=== PATIENT | female | born 1980 | race Caucasian/White ===

== ENCOUNTER → 2016-10-24 | Outpatient (CLI) | payer OTHER ==
--- NOTE | 2016-10-24 11:18 | REP ---
DIGITAL DIAGNOSTIC BILATERAL MAMMOGRAPHY WITH CAD AND FOCUSED LEFT BREAST SONOGRAPHY: HISTORY: Painful lump left breast for the last month. Upper outer quadrant. No comparison imaging. MAMMOGRAPHIC FINDINGS: A skin marker is affixed to the skin at the site of the palpable lump. Routine views of the right breast were obtained. Routine left breast views are augmented by magnified focal spot compression CC, MLO and true MLO views. Underlying the skin marker in the upper outer quadrant left breast is a somewhat ill-defined 1.6 cm mass. No definite spiculation is seen. No microcalcifications are observed. Scattered fibroglandular elements are noted elsewhere in the left breast and symmetrically on the right. No right-sided mass is seen. No suspicious calcifications are observed. The mammogram is otherwise unremarkable. SONOGRAPHIC FINDINGS: The left breast is scanned through the area of palpable lump at approximate 2-o'clock position. A macrolobulated hypoechoic solid mass lesion is seen with some enhanced through transmission. This measures 18 x 13 x 14 mm. It is compatible with a fibroadenoma but not diagnostic of this lesion. BIRADS category is felt to be best assigned as category 4. IMPRESSION: BIRADS category 4 suspicious breast imaging. Solid macrolobulated 18 mm mass in the upper outer quadrant at the site of the palpable lump. Histologic sampling is recommended. Ultrasound guided needle biopsy can be performed if desired. BIRADS/ACR category 4 mammogram. Suspicious abnormality - biopsy should be considered. Usually requires biopsy. This mammogram was interpreted with the aid of an FDA-approved computer-aided detection system. The patient states she/he had a clinical breast exam in October, The patient letter being requested is M4. Signed by Pieter Elizabeth MD 10/24/2016 02:01 P
== END ==
LOC: M RAD 09:41
PROVIDERS: ATTEND Family Medicine
DX: N63 Unspecified lump in breast (principal); D48.62 Neoplasm of uncertain behavior of left breast
CPT/HCPCS: 76642; G0204

== ENCOUNTER → 2016-11-21 | Outpatient (CLI) | payer OTHER ==
[~2016-11-21] MED LIST: LIDOCAINE 1% MDV 20ML VIAL As Ordered ONE
--- NOTE | 2016-11-21 15:20 | REP ---
POSTBIOPSY MAMMOGRAM LEFT BREAST: Postbiopsy mammogram left breast performed in the MLO and CC projections. Metallic clip is seen just posterior to the suspicious nodule seen on the mammogram of 10/24/2016. Signed by Nikko Rojas MD 11/21/2016 03:30 P
--- NOTE | 2016-11-21 16:47 | REP ---
ULTRASOUND GUIDED LEFT BREAST BIOPSY: The procedure was performed under the direct supervision of Dr. Rojas. The patient has a history of an 18 x 13 x 14 mm macro-lobulated hypoechoic solid mass seen in the 2 o'clock position of the left breast on a previous ultrasound dated 10/24/2016. The risks and benefits of the procedure were explained to the patient and informed consent was obtained. The left breast mass was localized using ultrasound guidance. The skin was prepped and draped in a sterile fashion. 1% Xylocaine was used as a local anesthetic. Using ultrasound guidance a 13-gauge suction assisted mammotome needle was inserted and 5 core biopsy samples were obtained. A marker clip was placed at the biopsy site. The patient tolerated the procedure well and there were no immediate complications. After the appropriate amount of monitored convalescence the patient was discharged from the department. Reviewed by ANALISA Gonzalez 11/21/2016 04:52 PEdited and Signed by Nikko Rojas MD 11/21/2016 04:57 P
== END ==
LOC: M RADPRO 12:29
PROVIDERS: ATTEND Surgery
DX: C50.919 Malignant neoplasm of unspecified site of unspecified female breast (principal); F32.9 Major depressive disorder, single episode, unspecified; F41.9 Anxiety disorder, unspecified; Z79.899 Other long term (current) drug therapy
CPT/HCPCS: 19083; 88305; G0206

== ENCOUNTER 2016-12-03 10:02 | Inpatient (IN) | payer OTHER ==
[~2016-12-03] VITALS: Ht 154.9 cm; Wt 57.0 kg
[~2016-12-03 10:02] MED LIST changes: +BUPIVACAINE HCL 0.25% 30 ML VIAL As Ordered ONE; +LEXA1TAB2 PO; -LIDOCAINE 1% MDV 20ML VIAL As Ordered ONE; +LIDOCAINE 1% SDV INJ 30 ML VIAL As Ordered ONE; +METHYLENE BLUE 0.5% (5MG/ML) 10 ML AMP (PROVAYBLUE)(Q9968 PER 1MG) As Ordered ONE
[2016-12-03] MEDS ORDERED: LR 1,000 ML IV SCH ×2 (10:30→18:45)
[2016-12-03 10:51] LABS: CONTROL LINE UCG INT CTR LINE PRESENT
[2016-12-03] MEDS ORDERED: LIDOCAINE 5% (LIDODERM) PATCH As Ordered ONE (11:22)
[2016-12-03] MEDS ORDERED: LIDOCAINE 5% (LIDODERM) PATCH TD ONE (11:30)
[2016-12-03] MEDS ORDERED: ROCURONIUM BROMIDE 50 MG/5 ML VIAL As Ordered ONE (11:37)
[2016-12-03] MEDS ORDERED: dexameTHASONE 4 MG/ML 1ML VIAL (J1100) As Ordered ONE (11:37)
[2016-12-03] MEDS ORDERED: LIDOCAINE 2% INJ 100 MG/5 ML SDV (FOR ANES.) As Ordered ONE (11:37)
[2016-12-03] MEDS ORDERED: PROPOFOL 200 MG/20 ML VIAL As Ordered ONE (11:37)
[2016-12-03] MEDS ORDERED: MIDAZOLAM INJ 2 MG/2 ML VIAL (J2250) As Ordered ONE (11:38)
[2016-12-03] MEDS ORDERED: fentaNYL 250 MCG/5 ML INJECTION (J3010) As Ordered ONE (11:38)
[2016-12-03] MEDS: LR 1,000 ML IV SCH ×2 (11:40→20:28)
[2016-12-03] MEDS ORDERED: REMIFENTANIL 1MG 3ML VIAL As Ordered ONE (13:17)
[2016-12-03] MEDS ORDERED: SEVOFLURANE INHAL SOLN 250 ML BTL As Ordered ONE (13:26)
[2016-12-03] MEDS ORDERED: SUCCINYLCHOLINE 100 MG/5 ML SYRINGE (J0330) As Ordered ONE (14:12)
--- NOTE | 2016-12-03 14:38 | REP ---
BILATERAL SENTINEL NODE BREAST LYMPHOSCINTIGRAPHY: Patient was referred for bilateral sentinel node breast lymphoscintigraphy. Procedure was explained in detail to the patient as well as the risks, which included, but are not limited to, pain, bleeding, and infection. Informed consent was obtained. Topical anesthetic was applied to the periareolar region of the left breast. Under sterile conditions, a total of 1.039 mCi technetium 99m filtered sulfur colloid was injected in a subdermal location in the left periareolar region. The same procedure was performed on the right breast with subdermal injection of 0.992 mCi technetium 99m filtered sulfur colloid. 1-hour delayed images are performed showing multiple foci of uptake in both axillary regions. Right axillary region demonstrates a dominant focus of increased uptake. There also appears to be a dominant focus of increased uptake in the left axillary region with smaller foci of surrounding uptake. Signed by Nikko Rojas MD 12/04/2016 04:43 P
[2016-12-03] MEDS ORDERED: HYDROmorphone HCL 2 MG/ML 1ML VIAL (J1170) As Ordered ONE (17:51)
[2016-12-03] MEDS ORDERED: KETOROLAC 60 MG/2 ML VIAL (J1885) As Ordered ONE (17:54)
[2016-12-03] MEDS ORDERED: ONDANSETRON 4MG/2ML VIAL (J2405) As Ordered ONE (17:54)
[2016-12-03] MEDS ORDERED: MORPHINE 2 MG/ML 1ML SYRINGE IV PRN (18:45)
[2016-12-03] MEDS ORDERED: ACETAMINOPHEN TAB 650MG DOSE (2X325MG) PO PRN (18:45)
[2016-12-03] MEDS ORDERED: ONDANSETRON 4MG/2ML VIAL (J2405) IV PRN ×2 (18:45)
[2016-12-03] MEDS ORDERED: fentaNYL 100 MCG/2 ML INJECTION (J3010) IV PRN (18:45)
[2016-12-03] MEDS ORDERED: MORPHINE 4 MG/ML 1ML SYRINGE IV PRN (18:45)
[2016-12-03] MEDS ORDERED: NORCO, ANEXSIA 5/325MG TABLET (HYDROcodone/ACETAMINOPHEN) PO PRN (18:45)
[2016-12-03] MEDS: NORCO, ANEXSIA 5/325MG TABLET (HYDROcodone/ACETAMINOPHEN) PO PRN (19:27)
[2016-12-03 19:40] VITALS: BP 135/75
[2016-12-03 20:10] VITALS: BP 140/65
[2016-12-03 20:26] VITALS: O2SAT 97
[2016-12-03 21:10] VITALS: BP 138/62
[2016-12-03] MEDS: SENOKOT S TAB PO SCH (21:11)
[2016-12-03] MEDS: ESCITALOPRAM OXALATE 10 MG TAB (LEXAPRO) PO SCH (21:11)
[2016-12-03 22:10] VITALS: BP 140/50
[2016-12-03 23:30] VITALS: BP 134/63; O2SAT 97
[2016-12-04 00:30] VITALS: BP 130/60
[2016-12-04 04:30] VITALS: BP 140/67
[2016-12-04 08:00] VITALS: BP 134/75
[2016-12-04] MEDS: SENOKOT S TAB PO SCH ×2 (08:24→20:27)
[2016-12-04] MEDS: ENOXAPARIN 40 MG/0.4 ML SYRINGE (J1650) SC SCH (08:26)
[2016-12-04 09:19] LABS: BASO % 0.2 % (0.0-1.0); EOS % 0.1 % (0.0-3.0); LARGE UNSTAINED CELL # 0.1 K/mm3 (0.0-0.4); LARGE UNSTAINED CELL % 0.5 % (0.0-4.0); LYMPH # 1.5 K/mm3 (1.5-4.5); LYMPH % 10.1 % (24.0-44.0); MEAN CORPUSCULAR HEMOGLOBIN 27.4 pg (27.0-33.0); MEAN CORPUSCULAR HGB CONC 32.3 g/dl (32.0-36.5); MEAN CORPUSCULAR VOLUME 84.8 fl (80.0-96.0); MONO # 0.6 K/mm3 (0.0-0.8); MONO % 4.2 % (0.0-5.0); NEUTROPHILS # 12.8 K/mm3 (1.8-7.7); NEUTROPHILS % 84.8 % (36.0-66.0); PLATELET COUNT, AUTOMATED 251 k/mm3 (150-450); RED CELL DISTRIBUTION WIDTH 13.3 % (11.5-14.5); WHITE BLOOD COUNT 15.1 K/mm3 (4.0-10.0)
[2016-12-04 09:28] LABS: ANION GAP 8 MEQ/L (8-16); BLOOD UREA NITROGEN 7 MG/DL (7-18); CALCIUM LEVEL 7.9 MG/DL (8.5-10.1); CARBON DIOXIDE LEVEL 28 MEQ/L (21-32); CHLORIDE LEVEL 103 MEQ/L (98-107); CREATININE FOR GFR 0.88 MG/DL (0.55-1.02); GLOMERULAR FILTRATION RATE > 60.0 (>60); GLUCOSE, FASTING 155 MG/DL (70-105); SODIUM LEVEL 139 MEQ/L (136-145)
[2016-12-04] MEDS: NORCO, ANEXSIA 5/325MG TABLET (HYDROcodone/ACETAMINOPHEN) PO PRN ×2 (10:25→19:37)
[2016-12-04] MEDS: LR 1,000 ML IV SCH (10:59)
[2016-12-04 12:00] VITALS: BP 142/68
[2016-12-04] MEDS: KETOROLAC 30 MG/ML VIAL (J1885) IV PRN (13:55)
[2016-12-04 16:00] VITALS: BP 124/60
[2016-12-04 20:00] VITALS: BP 135/68
[2016-12-04] MEDS: ESCITALOPRAM OXALATE 10 MG TAB (LEXAPRO) PO SCH (20:27)
[2016-12-05 04:00] VITALS: BP 139/67
[2016-12-05] MEDS: NORCO, ANEXSIA 5/325MG TABLET (HYDROcodone/ACETAMINOPHEN) PO PRN ×2 (04:05→11:57)
[2016-12-05] MEDS: SENOKOT S TAB PO SCH (08:44)
[2016-12-05 08:45] VITALS: BP 133/70
[2016-12-05] MEDS: ENOXAPARIN 40 MG/0.4 ML SYRINGE (J1650) SC SCH (09:41)
[2016-12-05] MEDS: KETOROLAC 30 MG/ML VIAL (J1885) IV PRN (10:31)
[2016-12-05] MEDS ORDERED: NORCOTAB PO (12:42)
--- NOTE | 2016-12-09 00:29 | RO ---
DATE OF PROCEDURE: 12/03/2016 PREOPERATIVE DIAGNOSIS: Left breast cancer. POSTOPERATIVE DIAGNOSIS: Left breast cancer. PROCEDURE: Bilateral mastectomy, bilateral sentinel lymph node biopsy. SURGEON: Dr. Benjamin De Jesus PERSONAL CARE ASSISTANT: Dr. Vang ANESTHESIA: General anesthesia. ESTIMATED BLOOD LOSS: 50 mL. COMPLICATIONS: None. REMARKS: The patient tolerated the procedure well. SPECIMENS: Bilateral breast, sentinel lymph nodes. DRAINS: Two subcutaneous drains over the left mastectomy site, one subcutaneous drain over the right mastectomy site. DESCRIPTION OF PROCEDURE: Ms. Bhagat is a healthy, young 36-year-old female diagnosed with high-grade breast cancer on her left breast, which she palpated about a month ago. Testing shows triple negative breast cancer. She was advised her options. She eventually decided to undergo a left breast mastectomy and a prophylactic mastectomy on the other side. Details of the procedure, risks, and benefits have been fully explained to the patient during the clinic visit; we reviewed this in preoperative holding area. She went to radiology to have a lymphoscintigram done using 99 technetium sulfur colloid dye on both breast areas. The lymphoscintigram was examined prior to the operating room (OR), which shows flow into both axillae. She received 2 grams of Ancef preoperatively. She was brought to the operating room. laid supine on the table. Both arms were on the arm board. The arms, breast, and chest bilaterally were prepped and draped in the usual sterile fashion. After surgical time-out, we began our surgery. We started on the cancer side. Prior to making an incision, a methylene blue dye was injected subdermally, periareolar on both sides, and the breast was massaged about 3 minutes. The radiographic detector was placed at the axilla and tested closest to the point where we had the highest uptake through the pointer. A small transverse incision was created at the bottom of the axilla, and this was taken through the superficial subcutaneous tissue until we reached the axillary triangle. Both with palpation as well as with the use of the radiologic pointer, we were able to locate two hot nodes, which were colored blue and fairly enlarged. There were several other small lymph nodes that we also took. This was sent to pathology for frozen section and subsequently returned negative on this side. After this, we marked the skin incision along the left breast to plan for our flap. The flaps were then created both superiorly and inferiorly, coming around the breast to its superior margin just by the clavicle, lateral margin towards the axilla, medial margin towards the sternum, and inferior margin of rectus sheath. We came around the pectoralis muscle and stripped off the breast including the fascia. Bleeding points were cauterized, and two #10 flat Miguel-Babin (HERMANN) drains were left in place after placing Lorelei hemostatic powder. In a similar fashion, a sentinel lymph node biopsy was also done over the right side. Here, we got a smallish, hot lymph node and sent this for permanent pathology. We went through in a similar fashion with our mastectomy, creating our superior and inferior flaps around the breast and removing all of the breast tissue, including that of the fascia after creating the flaps. This was a fairly dry site; only a single drain was left in place in the subcutaneous space, and we closed this in layers with #3-0 Vicryl in the subcutaneous and dermal area and #4-0 Monocryl in subcuticular fashion to close the skin. Steri-Strips were then used fluff gauze dressings and a surgical bra to keep it in place. The patient was promptly awakened, extubated, brought to recovery room stable.
== END 2016-12-05 14:05 | disposition home or self-care (01) | DRG 581 ==
LOC: M OR 10:02 → M MS5PR 19:35 → M PED 22:25
PROVIDERS: ADMIT Surgery; ATTEND Surgery
PROC: 0HTV0ZZ Resection of Bilateral Breast, Open Approach (ICD-10-PCS; 2016-12-03)
PROC: 07B60ZX Excision of Left Axillary Lymphatic, Open Approach, Diagnostic (ICD-10-PCS; 2016-12-03)
PROC: 07BJ0ZX Excision of Left Inguinal Lymphatic, Open Approach, Diagnostic (ICD-10-PCS; principal; 2016-12-03 13:45)
DX: C50.412 Malignant neoplasm of upper-outer quadrant of left female breast (principal)

== ENCOUNTER → 2016-12-16 | Outpatient (REF) | payer OTHER ==
[~2016-12-16] MED LIST changes: -BUPIVACAINE HCL 0.25% 30 ML VIAL As Ordered ONE; -LIDOCAINE 1% SDV INJ 30 ML VIAL As Ordered ONE; -METHYLENE BLUE 0.5% (5MG/ML) 10 ML AMP (PROVAYBLUE)(Q9968 PER 1MG) As Ordered ONE; +NORCOTAB PO
[2016-12-16 13:07] LABS: INR 0.97
== END ==
LOC: M LAB REF 12:42
PROVIDERS: ATTEND Internal Medicine Medical Oncology
DX: C50.412 Malignant neoplasm of upper-outer quadrant of left female breast (principal)

== ENCOUNTER → 2016-12-25 | Outpatient (CLI) | payer OTHER ==
[~2016-12-25] MED LIST changes: +LIDOCAINE W/EPINEPHRINE 1% 20ML VIAL As Ordered ONE; +MIDAZOLAM INJ 2 MG/2 ML VIAL (J2250) As Ordered ONE; +SODIUM BICARBONATE 8.4% INJ 50MEQ 50 ML VIAL As Ordered ONE; +ceFAZolin 1GM INJ (J0690) As Ordered ONE; +fentaNYL 100 MCG/2 ML INJECTION (J3010) As Ordered ONE
--- NOTE | 2016-12-25 16:57 | REPKIM ---
CLINICAL HISTORY: Left breast ca and s/p bilateral mastectomy. The referring service has asked a chest [id number]-ewry placement for chemotherapy. PROCEDURE PERFORMED: Placement of totally implantable venous access device under combined sonographic and fluoroscopic guidance INTERVENTIONALIST: Juan Jacobson MD CONSENT: The risks, benefits and alternatives to the procedure were explained to the patient and informed written consent was obtained. MEDICATIONS: Local Lidocaine, Ancef 1g IV, Versed IV and Fentanyl IV. SEDATION: Conscious sedation using Versed 2.0 mg IV and Fentanyl 100 mcg IV; starting time at 1144 and end at 1248. Independent trained observer was present during the entire duration of the conscious sedation for monitoring. EBL: 5 mL FLUORO TIME: 0.2 minutes DEVICE USED: [employer] Injectable Slim Port 6.6-Frisian, Single-Lumen Lot#[id number] PROCEDURE/FINDINGS: The patient was brought to the interventional radiology suite and was positioned supine on the table. Time out procedure was performed. Real time ultrasound was used and permanent image stored. The right IJ vein is patent and compressible. Using ultrasound guidance the internal jugular vein was accessed with a micropuncture needle, after infiltration of the skin and deep tissues with local anesthetic. A peel-away sheath was placed. The catheter tip was inserted via the sheath under controlled respiration. The sheath was removed, and the catheter was flushed with heparinized saline and clamped. Next attention was turned to creation of a subcutaneous pocket for the port along the upper chest. The overlying skin and deep tissues were infiltrated with local anesthetic. A transverse skin incision was made long enough to accommodate the reservoir, and using blunt dissection a subcutaneous pocket was created. A tunnel was created from the pocket to the access site. A clamp was advanced from the pocket incision to the venous access site and used to grasp the free end of the catheter and pull it through to the pocket incision. The catheter was trimmed, attached to the reservoir, and flushed with heparinized saline. The reservoir was inserted into the pocket and secured with 2-0 absorbable sutures. The deep tissue was closed with interrupted 2-0 Vicryl suture. The skin incision was closed with a running subcuticular suture of 4-0 Vicryl. The venotomy incision was closed with 4-0 Vicryl suture. Mastisol and Steri-Strips were applied. The port was then accessed and Heparin (100 units/mL concentration) locked in the port. A sterile dressing was then applied. Post procedure chest spot film radiograph showed the tip of the catheter is at the cavoatrial junction. The patient tolerated the procedure well with no immediate complications. This procedure was performed using ultrasound and fluoroscopy. Dr. Jacobson was present. IMPRESSION: 1. The right IJ vein is patent and compressible. 2. Successful placement of right IJ chest port placement as discussed above. The chest [id number] is ready for use. cc: MD JAIME Adamson
== END | disposition home or self-care (01) ==
LOC: M IRPRO 10:12
PROVIDERS: ATTEND Internal Medicine Medical Oncology
DX: C50.912 Malignant neoplasm of unspecified site of left female breast (principal)
CPT/HCPCS: 36561; 76937; 77001; 99152; 99153; C1788; C1894; J0690; J2250; J3010

== ENCOUNTER → 2016-12-25 | Outpatient (CLI) | payer OTHER ==
[~2016-12-25] MED LIST changes: -LIDOCAINE W/EPINEPHRINE 1% 20ML VIAL As Ordered ONE; -MIDAZOLAM INJ 2 MG/2 ML VIAL (J2250) As Ordered ONE; -SODIUM BICARBONATE 8.4% INJ 50MEQ 50 ML VIAL As Ordered ONE; -ceFAZolin 1GM INJ (J0690) As Ordered ONE; -fentaNYL 100 MCG/2 ML INJECTION (J3010) As Ordered ONE
--- NOTE | 2016-12-26 19:13 | ECHO ---
DATE OF PROCEDURE: 12/25/2016 REFERRING PHYSICIAN: Danielle Gonsalez MD PATIENT LOCATION: Outpatient REASON FOR ECHOCARDIOGRAM: Chemotherapy drug monitoring. 2D MEASUREMENTS: IVS: 0.73 cm LV: 3.8 cm LVPW: 0.86 cm LA: 2.7 cm Aorta: 2.5 cm IVC: 1.5 cm DOPPLER MEASUREMENTS: Peak velocity across the aortic valve: 1.5 m/s Peak velocity across the LVOT: 1.1 m/s Mitral E: 0.76, Mitral A: 0.56, with a ratio of 1.4 2D COMMENTS: 1. Normal left ventricular size, wall thickness and normal global left ventricular systolic function. The estimated global left ventricular systolic ejection fraction is 65 to 70%. 2. Normal left atrium. Normal right atrium and right ventricle. 3. The atrial septum appeared to be normal without evidence of defect or shunt. 4. Normal aortic root. 5. No pericardial effusion seen. 6. Minimally calcified aortic valve with normal leaflet excursion. Normal mitral valve, tricuspid valve, and pulmonic valve. The proximal pulmonary artery branches were not well visualized. 7. The inferior vena cava was normal in size, central venous pressure is most likely normal. DOPPLER: It detects trace aortic regurgitation and trace mitral regurgitation. Assessment of the left ventricular diastolic function was normal. IMPRESSION: 1. Normal global left ventricular systolic and diastolic function. 2. Aortic valve sclerosis with trace aortic regurgitation. 3. Trace mitral regurgitation.
== END ==
LOC: M CARPUL 09:23
PROVIDERS: ATTEND Internal Medicine Medical Oncology
DX: C50.919 Malignant neoplasm of unspecified site of unspecified female breast (principal)

== ENCOUNTER → 2016-12-26 | Outpatient (CLI) | payer OTHER ==
[~2016-12-26] MED LIST changes: +GASTROGRAFIN SOLUTION 30ML (Q9963) As Ordered ONE; +ISOVUE-370 76% 100ML VIAL (Q9967) As Ordered ONE
--- NOTE | 2016-12-26 11:18 | REP ---
Clinical: Breast cancer. Staging. Technique: Axial contrast enhanced images from the lung bases to the pubic symphysis using oral and 100 ml Isovue 370 intravenous contrast material with precontrast and delayed images of the abdomen as well as coronal and sagittal re-formations. Findings: Lung bases are clear. Visualized heart and pericardium normal. Liver, spleen, pancreas, gallbladder, bilateral adrenal glands and kidneys are normal. The enteric system is without obstruction or acute inflammatory process. Normal terminal ileum and appendix identified in the right lower quadrant. Pelvis demonstrates normal bladder and age-appropriate uterus/adnexa. Small amount of free fluid in the pelvis is nonspecific and likely physiologic. No significant adenopathy. No free air. No ascites. Surrounding musculoskeletal structures are intact without obvious focal osseous abnormality. Impression: Normal contrast enhanced CT of the abdomen and pelvis. Signed by Malachi Villaseñor MD 12/26/2016 11:09 A
--- NOTE | 2016-12-26 11:21 | REP ---
Clinical: Breast cancer. Staging. Technique: Axial contrast enhanced images from the thoracic inlet to the upper abdomen using 100 ml Isovue 370 intravenous contrast material with coronal and sagittal re-formations. Findings: The bilateral lung grover are well-aerated, symmetric, and clear. No pulmonary parenchymal consolidation, nodule or mass lesion is appreciated. Tracheobronchial tree is patent. The patient appears to be status post bilateral mastectomy, axillary node dissection, and [id number] placement. The mediastinum demonstrates normal thoracic aorta, heart and pericardium. There is no evidence for adenopathy. Surrounding musculoskeletal structures are intact without focal osseous abnormality. Impression: No acute mediastinal or pleuroparenchymal process. Signed by Malachi Villaseñor MD 12/26/2016 11:12 A
--- NOTE | 2016-12-26 15:42 | REP ---
Whole body radionuclide bone scan: History: Breast carcinoma. Question metastasis. Technique: 22.0 mCi technetium 99m MDP is injected and standard whole body bone scan imaging was acquired. Findings: There is a normal distribution of skeletal tracer with uptake in bilateral kidneys and in the urinary bladder. There is no evidence to suggest skeletal metastatic disease. There is a somewhat linear area of soft tissue uptake in the left breast soft tissues which is felt to correspond with the patient's recent left breast surgery. Impression: Negative whole body radionuclide bone scan. Signed by Pieter Elizabeth MD 12/26/2016 03:34 P
== END ==
LOC: M RAD 08:58
PROVIDERS: ATTEND Internal Medicine Medical Oncology
DX: C50.919 Malignant neoplasm of unspecified site of unspecified female breast (principal)
CPT/HCPCS: 71260; 74178; Q9963; Q9967

== ENCOUNTER → 2017-01-09 | Outpatient (CLI) | payer OTHER ==
[~2017-01-09] MED LIST changes: -GASTROGRAFIN SOLUTION 30ML (Q9963) As Ordered ONE; -ISOVUE-370 76% 100ML VIAL (Q9967) As Ordered ONE
--- NOTE | 2017-01-09 16:47 | REP ---
PELVIC ULTRASOUND: Right lower quadrant pain. COMPARISON: None. Transvesical and transvaginal imaging was obtained. The uterus measures 7.7 x 5.0 x 5.7 cm. The parenchymal echo pattern is within normal limits. The endometrial echo complex is smooth and unremarkable appearing measuring 6 mm in its greatest thickness. Right ovary measures 3.3 x 1.6 x 2.2 cm and is within normal limits with an RI of 0.62. Left ovary measures 3.4 x 1.6 x 1.8 cm and is within normal limits with an RI of 6.4. IMPRESSION: Pelvic ultrasonography, as described above, is within normal limits. Unreviewed
== END ==
LOC: M LRY 14:03
PROVIDERS: ATTEND Nurse Practitioner Women's Health
DX: R10.31 Right lower quadrant pain (principal)

== ENCOUNTER → 2017-08-12 | Outpatient (CLI) | payer OTHER | LOC: M CARPUL 14:10 | DX: C50.919 Malignant neoplasm of unspecified site of unspecified female breast (principal); Z79.899 Other long term (current) drug therapy; R94.31 Abnormal electrocardiogram [ECG] [EKG] | CPT/HCPCS: 93306 ==

== ENCOUNTER → 2017-10-29 | Outpatient (CLI) | payer OTHER ==
[~2017-10-29] MED LIST changes: -LEXA1TAB2 PO; -NORCOTAB PO; +PROHANCE 279.3MG/ML 15ML VIAL (A9576) As Ordered
== END ==
LOC: M RAD 12:29
DX: C50.919 Malignant neoplasm of unspecified site of unspecified female breast (principal); R42 Dizziness and giddiness
CPT/HCPCS: A9576

== ENCOUNTER → 2018-06-03 | Outpatient (CLI) | payer OTHER | LOC: M LRY 15:22 | DX: I26.99 Other pulmonary embolism without acute cor pulmonale (principal); N92.0 Excessive and frequent menstruation with regular cycle | CPT/HCPCS: 76830 ==

== ENCOUNTER → 2018-07-26 | Outpatient (REF) | payer OTHER ==
[~2018-07-26] MED LIST changes: +LEXA1TAB2 PO; +NORCOTAB PO; -PROHANCE 279.3MG/ML 15ML VIAL (A9576) As Ordered
== END ==
LOC: M LAB REF 17:28
PROVIDERS: ATTEND Obstetrics & Gynecology
DX: N92.0 Excessive and frequent menstruation with regular cycle (principal)

== ENCOUNTER 2018-08-25 07:34 | Day surgery (SDC) | payer OTHER ==
[2018-08-25] VITALS (7 sets, daily range): BP systolic 104–128; BP diastolic 56–61
[~2018-08-25] VITALS: Ht 154.9 cm; Wt 55.3 kg
[~2018-08-25 07:34] MED LIST changes: +IBUP1TAB7 PO; +LIDOCAINE 1% MDV 20ML VIAL SQ PRN; +LR 1,000 ML IV ONE; +PERCOCET PO
[2018-08-25 08:01] LABS: HEMATOCRIT 38.9 % (36.0-47.0); HEMOGLOBIN 12.2 g/dl (12.0-15.5); MEAN CORPUSCULAR HEMOGLOBIN 26.4 pg (27.0-33.0); MEAN CORPUSCULAR HGB CONC 31.4 g/dl (32.0-36.5); MEAN CORPUSCULAR VOLUME 84.2 fl (80.0-96.0); PLATELET COUNT, AUTOMATED 212 10^3/uL (150-450); RED BLOOD COUNT 4.62 10^6/uL (4.00-5.40); WHITE BLOOD COUNT 3.9 10^3/uL (4.0-10.0)
[2018-08-25] MEDS ORDERED: MIDAZOLAM INJ 2 MG/2 ML VIAL (J2250) As Ordered ONE (08:03)
[2018-08-25] MEDS ORDERED: LIDOCAINE 2% INJ 100 MG/5 ML SDV (FOR ANES.) As Ordered ONE (08:03)
[2018-08-25] MEDS ORDERED: GLYCOPYRROLATE INJ 0.2 MG/ML 2 ML VIAL As Ordered ONE (08:03)
[2018-08-25] MEDS ORDERED: fentaNYL 100 MCG/2 ML INJECTION (J3010) As Ordered ONE (08:03)
[2018-08-25] MEDS ORDERED: dexameTHASONE 4 MG/ML 1ML VIAL (J1100) As Ordered ONE (08:03)
[2018-08-25] MEDS ORDERED: ONDANSETRON 4MG/2ML VIAL (J2405) As Ordered ONE (08:03)
[2018-08-25] MEDS ORDERED: PROPOFOL 200 MG/20 ML VIAL As Ordered ONE (08:03)
[2018-08-25] MEDS ORDERED: NEOSTIGMINE 10 MG/10 ML VIAL (J2710) As Ordered ONE (08:03)
[2018-08-25] MEDS ORDERED: ROCURONIUM BROMIDE 50 MG/5 ML VIAL As Ordered ONE (08:03)
[2018-08-25] MEDS ORDERED: HYDROmorphone HCL 2 MG/ML 1ML VIAL (J1170) As Ordered ONE (08:07)
[2018-08-25 08:12] LABS: HCG, SERUM QUALITATIVE NEGATIVE (NEGATIVE)
[2018-08-25] MEDS ORDERED: BUPIVACAINE HCL 0.25% 30 ML VIAL As Ordered ONE (08:49)
[2018-08-25] MEDS ORDERED: LR 1,000 ML IV SCH ×2 (11:15→11:30)
[2018-08-25] MEDS ORDERED: ONDANSETRON 4MG/2ML VIAL (J2405) IV PRN (11:15)
[2018-08-25] MEDS ORDERED: PERCOCET 5MG/325MG TAB PO PRN ×3 (11:15→11:30)
[2018-08-25] MEDS ORDERED: HYDROMORPHONE HCL 0.5 MG/ 0.5 ML SYRINGE (J1170 PER 1) IV PRN (11:15)
[2018-08-25] MEDS ORDERED: zolPIDEM TARTRATE 10MG TAB PO PRN (11:30)
[2018-08-25] MEDS ORDERED: MORPHINE 4 MG/ML 1ML VIAL/SYRINGE (J2270) IV PRN (11:30)
[2018-08-25] MEDS ORDERED: PROMETHAZINE INJ 25 MG/ML VIAL (J2550) IV PRN (11:30)
[2018-08-25] MEDS: fentaNYL 100 MCG/2 ML INJECTION (J3010) IV PRN ×2 (11:30→11:35)
[2018-08-25] MEDS ORDERED: KETOROLAC 30 MG/ML VIAL (J1885) IV SCH (14:00)
--- NOTE | 2018-08-25 14:55 | RO ---
DATE OF PROCEDURE: 08/25/2018 PREOPERATIVE DIAGNOSIS: Abnormal uterine bleeding. POSTOPERATIVE DIAGNOSIS: Abnormal uterine bleeding. PROCEDURE PERFORMED: 1. Robotic assisted laparoscopic hysterectomy. 2. Bilateral salpingectomy. 3. Cystoscopy. SURGEON: Kaye Van MD HAND CANDY DIPPER: Omaira Cat NP ANESTHESIA: General endotracheal anesthesia. ESTIMATED BLOOD LOSS: 40 mL. INTRAVENOUS FLUIDS: 900 mL of lactated Ringer solution. URINE OUTPUT: 100 mL. PREOPERATIVE ANTIBIOTICS: 2 grams of Ancef. OPERATIVE FINDINGS: Patient with normal-appearing uterus, bilateral adnexa and cystoscopic findings revealed normal bladder mucosa. Bilateral jets were observed. No foreign objects. DESCRIPTION OF OPERATION: After informed consent was obtained and written content was reviewed, the patient was brought to the operating room where general endotracheal anesthesia was obtained. She was then placed in lithotomy position, was prepped and draped in normal sterile fashion. A time-out in operating room was then performed identifying patient, procedure to be performed, as well as drug allergies. A speculum was then placed revealing the cervix. The anterior and posterior aspects of the cervix was stitched with #0 Vicryl. A large [employer] uterine manipulator was then advanced through the cervical os for means to manipulate the uterus. The cervical cap as well as the vaginal sleeve was applied down into the vagina. The speculum was removed and a Diop catheter was placed and set to gravity. Gloves were changed. Attention was turned to the patient's abdomen, where a Veress needle was placed through the umbilicus and a pneumoperitoneum was obtained with CO2 gas. The umbilical area was then infused with 0.25% Marcaine. An incision was made in this area and a 12 mm trocar and sleeve was advanced through this incision. The laparoscope was then replaced revealing intra-abdominal placement. Three additional port sites were placed, two to the left side of the patient's abdomen and one to the right. These areas were infused with 0.25% Marcaine and each on of these areas an incision was made. An 8 mm trocar and sleeve was then advanced through each on of these incisions under direct visualization. Next, the da Christine was then docked utilizing a camera arm and two operative arms. The patient's abdomen was then surveyed with the above-noted finding. Bilateral salpingectomies were then performed. The right fallopian tube was placed on traction. It was transected at the level of the uterus. The mesosalpinx was cauterized and ligated with good hemostasis noted. This specimen was then brought out through the port site. In a similar fashion, left fallopian tube was placed on traction. Using a vessel sealer, the left fallopian tube was transected at the level of the uterus. The mesosalpinx was further dissected using the vessel sealer and the specimen was brought out through the port site. Next, the utero-ovarian ligaments bilaterally were cauterized and ligated with good hemostasis noted. The round ligaments were then cauterized and ligated with good hemostasis noted. The anterior lip of the broad ligaments were then cauterized and ligated bilaterally and dissected along the bladder creating a bladder flap. The remainder of the broad and cardinal ligaments were then cauterized and ligated with good hemostasis noted. The uterine vessels were then skeletonized bilaterally and were cauterized and ligated with good hemostasis noted. Anterior and posterior colpotomies were made using monopolar scissors. The uterus was then brought out through the vaginal incision. Surgical sites were inspected and noted to be hemostatic. The vaginal cuff was then closed using #2-0 V-Loc system in a running fashion. The surgical sites were then irrigated and suctioned. Lorelei was applied over the surgical field. Pneumoperitoneum was then released. Next, a cystoscopy was performed. Utilizing a 70-degree scope, this was advanced transurethrally through the bladder. Then, the bladder was surveyed showing normal mucosa. No foreign bodies. Bilateral jets were observed. The cystoscope was then removed. The bladder was drained. Gloves were changed. Attention was turned to the patient's abdomen where all four port sites were closed with #4-0 Monocryl and was dressed with Dermabond. The patient was then taken out of lithotomy position, then was awakened from general anesthesia and taken to recovery in stable condition. Counts were correct. Omaira Cat, my certified ophthalmic surgical assistant, played an essential role in the surgery. She assisted with port placement, retraction, identification of structures, as well as wound closure. JAIME
[2018-08-25] MEDS ORDERED: SLF 3 ML SYR IV PRN (17:30)
[2018-08-25] MEDS ORDERED: SLF 3 ML SYR IV SCH (22:00)
== END 2018-08-25 19:30 | disposition home or self-care (01) ==
LOC: M SDC 07:34 → M PED 12:35 → M SDC 19:30
PROVIDERS: ATTEND Obstetrics & Gynecology
DX: N92.6 Irregular menstruation, unspecified (principal); F41.9 Anxiety disorder, unspecified; F32.9 Major depressive disorder, single episode, unspecified; Z85.3 Personal history of malignant neoplasm of breast; Z92.21 Personal history of antineoplastic chemotherapy; Z79.899 Other long term (current) drug therapy
CPT/HCPCS: 36415; 58571; 84703; 85027; 86850; 86900; 86901; 88307; J0690; J1100; J1170; J1885; J2250; J2405; J2710; J3010